=== PATIENT | female | born 2000 | race Caucasian/White ===

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

== ENCOUNTER 2020-01-26 09:42 | Emergency (ER) | payer MEDICAID ==
[~2020-01-26] VITALS: Ht 167.6 cm; Wt 121.7 kg
[2020-01-26 09:45] VITALS: BP 122/84
--- NOTE | 2020-01-26 10:04 | NUR ---
DR. OLIVIER GREER PT AT BEDSIDE
[2020-01-26] MEDS ORDERED: NACL 0.9% 1,000 ML IV ONE (10:05)
[2020-01-26] MEDS ORDERED: KETOROLAC 30 MG/ML VIAL IVP ONE (10:05)
[2020-01-26 10:35] LABS: BASOPHILS # (AUTO) 0.1 K/uL (0.00-0.22); BASOPHILS % (AUTO) 0.5 % (0.0-2.0); EOSINOPHILS # (AUTO) 0.2 K/uL (0-0.4); EOSINOPHILS % (AUTO) 1.3 % (0.0-4.0); HEMATOCRIT 40.8 % (36-48); HEMOGLOBIN 14.1 g/dL (12.0-16.0); LYMPHOCYTES % (AUTO) 18.8 % (20.5-51.1); MEAN CORPUSCULAR HEMOGLOBIN 30 pg (27-31); MEAN CORPUSCULAR HGB CONC 35 g/dL (33-37); MEAN CORPUSCULAR VOLUME 85.8 fL (80-94); MONOCYTES # (AUTO) 0.9 K/uL (0.8-1.0); MONOCYTES % (AUTO) 5.5 % (1.7-9.3); NEUTROPHILS # (AUTO) 11.7 K/uL (1.8-7.7); NEUTROPHILS % (AUTO) 73.9 % (42.2-75.2); PLATELET COUNT (AUTO) 350 K/uL (140-450); RED BLOOD CELL COUNT(AUTO) 4.75 MIL/uL (4.20-5.40); RED CELL DISTRIBUTION WIDTH 13.1 % (11.6-13.7); WHITE BLOOD COUNT (AUTO) 15.9 K/uL (4.5-11.0)
[2020-01-26] MEDS ORDERED: MORPHINE SULFATE 4 MG/ML SYR IVP ONE (10:40)
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
[2020-01-26 10:53] LABS: ALBUMIN 3.1 g/dL (3.4-5.0); ANION GAP 13.2 (8-16); CARBON DIOXIDE 23.1 mmol/L (21-32); CREATININE 0.5 mg/dL (0.6-1.3); POTASSIUM 3.3 mmol/L (3.5-5.1); TOTAL BILIRUBIN 0.5 mg/dL (0.0-1.0)
[2020-01-26] MEDS ORDERED: PIPERACILLIN/TAZOBACTAM 3.375 GM in DEXTROSE 5% 50 ML IV ONE (11:55)
[2020-01-26] MEDS ORDERED: PIPERACILLIN/TAZOBACTAM 3.375 GM VIAL IV ONE (12:06)
[2020-01-26] MEDS ORDERED: LIDOCAINE/EPI 2% 1:100000 20 ML VIAL INJ ONE (12:15)
--- NOTE | 2020-01-26 12:15 | NUR ---
Tushar kate in [facility] - 01/26/20 at [address] Rust is evaluating at bedside for incision and drainage.
--- NOTE | 2020-01-26 12:16 | NUR ---
Dr. Rust at bedside for incision and drainage.
[2020-01-26 13:04] VITALS: BP 101/80
--- NOTE | 2020-01-26 13:05 | NUR ---
Patient discharged with v/s stable. Written and verbal after care instructions given and explained. Patient alert, oriented and verbalized understanding of instructions. Ambulatory with steady gait. All questions addressed prior to discharge. ID band removed. Patient advised to follow up with PMD. Rx of bactrim ds/keflex/ibuprofen given. Patient educated on indication of medication including possible reaction and side effects. Opportunity to ask questions provided and answered.
== END 2020-01-26 13:04 | disposition home or self-care (01) ==
LOC: MED 09:42
DX: L05.01 Pilonidal cyst with abscess (principal)
CPT/HCPCS: 10080; 36415; 72193; 80053; 81002; 81025; 83605; 85025; 87040; 96365; 96375; 99285; J1885; J2001; J2270; J2543; J7030; Q9967; 96374

== ENCOUNTER 2020-01-29 16:07 | Emergency (ER) | payer MEDICAID ==
[~2020-01-29] VITALS: Ht 167.6 cm; Wt 121.6 kg
[2020-01-29 16:22] VITALS: BP 142/89
--- NOTE | 2020-01-29 16:39 | NUR ---
PT AMBULATED TO ER BED 3
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
--- NOTE | 2020-01-29 17:49 | NUR ---
rc louis at bedside evaluating pt.
[2020-01-29 19:22] VITALS: BP 157/77
== END 2020-01-29 19:22 | disposition home or self-care (01) ==
LOC: MED 16:07
DX: L05.91 Pilonidal cyst without abscess (principal)
CPT/HCPCS: 99281

== ENCOUNTER 2020-09-20 18:03 | Emergency (ER) | payer MEDICAID ==
[~2020-09-20] VITALS: Ht 167.6 cm; Wt 122.5 kg
[2020-09-20 18:08] VITALS: BP 143/74
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
--- NOTE | 2020-09-20 18:21 | NUR ---
NORTH Sanchez at bedside examining pt
[2020-09-20] MEDS ORDERED: LIDOCAINE MPF 1% 10 MG/ML VIAL INJ ONE (18:25)
[2020-09-20] MEDS ORDERED: KETOROLAC 30 MG/ML VIAL IM ONE (18:25)
--- NOTE | 2020-09-20 19:03 | NUR ---
Report given to SHERRY Lock. Transfer of care at this time
[2020-09-20 19:30] VITALS: BP 138/86
--- NOTE | 2020-09-20 19:30 | NUR ---
Patient discharged with v/s stable. Written and verbal after care instructions given and explained. Patient alert, oriented and verbalized understanding of instructions. Ambulatory with steady gait. All questions addressed prior to discharge. ID band removed. Patient advised to follow up with PMD. Rx of NAPROSYN, AND BACTRIM given. Patient educated on indication of medication including possible reaction and side effects. Opportunity to ask questions provided and answered.
== END 2020-09-20 19:30 | disposition home or self-care (01) ==
LOC: MED 18:03
DX: L05.91 Pilonidal cyst without abscess (principal)
CPT/HCPCS: 10060; 96372; 99283; J1885; J2001

== ENCOUNTER 2020-09-23 18:42 | Emergency (ER) | payer MEDICAID ==
[~2020-09-23] VITALS: Ht 167.6 cm; Wt 127.0 kg
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
[2020-09-23 18:51] VITALS: BP 137/78
--- NOTE | 2020-09-23 19:14 | NUR ---
RECIEVED REPORT FROM SHERRY FISHER. TRANSFER OF CARE AT THIS TIME.
--- NOTE | 2020-09-23 20:28 | NUR ---
ERMD AT BEDSIDE PERFORMING WOUND CARE.
--- NOTE | 2020-09-23 20:32 | NUR ---
NO NURSING INTERVENTIONS NEEDED AT THIS TIME.
--- NOTE | 2020-09-23 20:32 | NUR ---
PAIN 3/10. NO PAIN INTERVENTIONS NEEDED AT THIS TIME.
[2020-09-23 20:36] VITALS: BP 122/68
--- NOTE | 2020-09-23 20:40 | NUR ---
Tushar kate in ED - 09/23/20 at 2044 by [email or web address] JAIDEN STATED THAT UA IS NOT NEEDED AYMORE .
== END 2020-09-23 20:36 | disposition home or self-care (01) ==
LOC: MED 18:42
DX: L02.212 Cutaneous abscess of back [any part, except buttock and flank] (principal); Z48.00 Encounter for change or removal of nonsurgical wound dressing
CPT/HCPCS: 99281; 99282

== ENCOUNTER 2022-02-13 09:17 | Emergency (ER) | payer MEDICAID ==
[~2022-02-13] VITALS: Ht 167.6 cm; Wt 136.1 kg
[2022-02-13 09:20] VITALS: BP 136/67
--- NOTE | 2022-02-13 09:25 | NUR ---
PT W/C ASSISTED TO BED 11.
--- NOTE | 2022-02-13 09:27 | NUR ---
ermd at bedside for evaluation
--- NOTE | 2022-02-13 09:29 | NUR ---
X-Ray at bedside.
--- NOTE | 2022-02-13 09:47 | NUR ---
21 y/o female, pt states she fell down 2 steps of stairs after missing a step yesterday. denies loc, syncope, or head/neck injury. c/o left ankle pain, sharp, that radiates to left knee. pt ambulates with assist, aa&ox4. denies nausea, vomiting, diarrhea. skin is pink/warm/dry. lungs clear bl, heart rate even and regular. pt denies any fever, cp, sob, or cough at this time. pt states pain is 8/10 at this time. vss. patient positioned for comfort. hob elevated. bed down. ermd made aware of pt. pmh: denies nka med: denies
[2022-02-13] MEDS ORDERED: HYDROcodone/APAP 5/325 MG 1 TAB TAB PO ONE (09:50)
[2022-02-13] MEDS ORDERED: ACET-8386 PO (10:33)
[2022-02-13] MEDS ORDERED: IBUP-2213 PO (10:33)
--- NOTE | 2022-02-13 11:15 | NUR ---
pt demonstrated use of crutches safely, questions and concerned addressed with md for discharge. air/gel splint placed on left ankle, pedal pulses within normal limits.
--- NOTE | 2022-02-13 11:16 | NUR ---
Patient discharged with v/s stable. Written and verbal after care instructions given and explained. Patient alert, oriented and verbalized understanding of instructions. Ambulatory with cructhes to car with friend. All questions addressed prior to discharge. ID band removed. Patient advised to follow up with PMD. Rx of ibuprofen, norco (sent) given. Patient educated on indication of medication including possible reaction and side effects. Opportunity to ask questions provided and answered. crutches with patient, aftercare instructions and belongings given to friend in front of pt. pt given socks and gel/air splint.
[2022-02-13 11:17] VITALS: BP 136/67
== END 2022-02-13 09:22 | disposition home or self-care (01) ==
LOC: MED 09:17
DX: S93.402A Sprain of unspecified ligament of left ankle, initial encounter (principal); Z79.899 Other long term (current) drug therapy; W22.8XXA Striking against or struck by other objects, initial encounter; Y93.89 Activity, other specified; Y92.89 Other specified places as the place of occurrence of the external cause; Y99.8 Other external cause status
CPT/HCPCS: 73610; 99283

== ENCOUNTER 2023-03-07 20:40 | Emergency (ER) | payer MEDICAID ==
[~2023-03-07] VITALS: Ht 165.1 cm; Wt 129.3 kg
[2023-03-07 20:40] VITALS: BP 153/87
[~2023-03-07 20:40] MED LIST: ACET-8905 PO; IBUP-2213 PO
--- NOTE | 2023-03-07 20:40 | NUR ---
PT TAKEN TO BED 1. DR. WILKINS AT BEDSIDE
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
--- NOTE | 2023-03-07 20:53 | NUR ---
[place] [employer] AT BEDSIDE
--- NOTE | 2023-03-07 21:03 | NUR ---
X-Ray at bedside.
[2023-03-07] MEDS ORDERED: MORPHINE SULFATE 4 MG/ML SYR IVP ONE (21:10)
[2023-03-07] MEDS ORDERED: ONDANSETRON 4 MG/2 ML VIAL IVP ONE (21:10)
[2023-03-07] MEDS ORDERED: ceFAZolin 1,000 MG VIAL IM ONE (21:15)
[2023-03-07] MEDS ORDERED: LIDOCAINE MPF 1% 5 ML ONE (21:18)
--- NOTE | 2023-03-07 21:22 | NUR ---
[place] [employer] AT BEDSIDE
[2023-03-07 21:26] LABS: BASOPHILS # (AUTO) 0.1 K/uL (0.00-0.22); BASOPHILS % (AUTO) 0.6 % (0.0-2.0); EOSINOPHILS # (AUTO) 0.1 K/uL (0-0.4); HEMATOCRIT 38.6 % (36-48); HEMOGLOBIN 12.9 g/dL (12.0-16.0); LYMPHOCYTES # (AUTO) 4.1 K/uL (2.5-16.5); LYMPHOCYTES % (AUTO) 33.2 % (20.5-51.1); MEAN CORPUSCULAR HEMOGLOBIN 29 pg (27-31); MEAN CORPUSCULAR HGB CONC 33 g/dL (33-37); MEAN CORPUSCULAR VOLUME 88.1 fL (80-94); MONOCYTES # (AUTO) 0.7 K/uL (0.8-1.0); MONOCYTES % (AUTO) 5.6 % (1.7-9.3); NEUTROPHILS # (AUTO) 7.3 K/uL (1.8-7.7); NEUTROPHILS % (AUTO) 59.6 % (42.2-75.2); PLATELET COUNT (AUTO) 345 K/uL (140-450); RED BLOOD CELL COUNT(AUTO) 4.39 MIL/uL (4.20-5.40); RED CELL DISTRIBUTION WIDTH 13.6 % (11.6-13.7); WHITE BLOOD COUNT (AUTO) 12.3 K/uL (4.8-10.8)
--- NOTE | 2023-03-07 21:30 | NUR ---
[facility]
--- NOTE | 2023-03-07 21:35 | NUR ---
PT RETURN FROM CT
--- NOTE | 2023-03-07 21:35 | NUR ---
RETURNED FROM RADIOLOGY
[2023-03-07 21:41] LABS: ALBUMIN 3.4 g/dL (3.4-5.0); ANION GAP 16.4 (8-16); CARBON DIOXIDE 21.7 mmol/L (21-32); CREATININE 0.9 mg/dL (0.6-1.3); POTASSIUM 3.1 mmol/L (3.5-5.1); TOTAL BILIRUBIN 0.2 mg/dL (0.0-1.0)
[2023-03-07] MEDS ORDERED: POTASSIUM CHLORIDE 20% 40 MEQ/15 ML UDC PO ONE (22:20)
--- NOTE | 2023-03-07 22:21 | NUR ---
FAMILY AT BEDSIDE. DR. WILKINS SPEAKING WITH PATIENT AND PT MOTHER
[2023-03-07] MEDS ORDERED: ACET-8905 PO (22:46)
[2023-03-07] MEDS ORDERED: IBUP-2213 PO (22:46)
[2023-03-07] MEDS ORDERED: CEPH-588 PO (22:48)
--- NOTE | 2023-03-07 23:22 | NUR ---
Patient discharged with v/s stable. Written and verbal after care instructions given and explained. Patient alert, oriented and verbalized understanding of instructions. All questions addressed prior to discharge. ID band removed. Patient advised to follow up with PMD. Rx's sent to preferred pharmacy. Patient educated on indication of medication including possible reaction and side effects. Opportunity to ask questions provided and answered.
[2023-03-07 23:24] VITALS: BP 123/84
== END 2023-03-07 23:22 | disposition home or self-care (01) ==
LOC: MED 20:40
DX: S71.132A Puncture wound without foreign body, left thigh, initial encounter (principal); E87.6 Hypokalemia; Z79.1 Long term (current) use of non-steroidal anti-inflammatories (NSAID); Z79.891 Long term (current) use of opiate analgesic; W34.09XA Accidental discharge from other specified firearms, initial encounter; Y92.89 Other specified places as the place of occurrence of the external cause; Y93.01 Activity, walking, marching and hiking; Y99.8 Other external cause status
CPT/HCPCS: 36415; 71045; 73552; 74018; 74177; 80053; 83690; 85025; 90471; 90715; 93005; 96372; 96374; 96375; 99291; J0690; J2001; J2270; J2405; Q9967